=== PATIENT | female | born 2000 | race African-American/Black ===

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

== ENCOUNTER 2023-02-22 10:07 | Emergency (ER) | payer MEDICAID ==
[~2023-02-22] VITALS: Ht 170.2 cm; Wt 67.4 kg
[~2023-02-22 10:07] MED LIST: NITR-87 PO
[2023-02-22 11:07] VITALS: BP 111/77; PULSE 116; RESP 18; TEMP 98.4; O2SAT 97
[2023-02-22 12:06] LABS: Urine Bacteria FEW /hpf (None Seen); Urine Blood Negative /uL (Negative); Urine Clarity HAZY (Clear); Urine Color Yellow (Yellow); Urine Mucus MODERATE (None Seen); Urine Protein, UAD 1+ (Negative); Urine Specific Gravity 1.032 (1.001-1.035); Urine WBC 5 /hpf (0 - 5)
[2023-02-22] MEDS ORDERED: CEPH500C PO (12:22)
[2023-02-22] MEDS ORDERED: ACET-1080 PO (12:22)
== END 2023-02-22 12:34 | disposition home or self-care (01) ==
LOC: ER 10:07
DX: O23.42 Unspecified infection of urinary tract in pregnancy, second trimester (principal); N39.0 Urinary tract infection, site not specified; J02.9 Acute pharyngitis, unspecified; Z3A.16 16 weeks gestation of pregnancy
CPT/HCPCS: 76805; 81001

== ENCOUNTER 2023-02-27 19:59 | Emergency (ER) | payer MEDICAID ==
[~2023-02-27] VITALS: Ht 165.1 cm; Wt 68.6 kg
[~2023-02-27 19:59] MED LIST changes: +ACET-1080 PO; +CEPH500C PO
[2023-02-27 21:15] VITALS: BP 108/46; PULSE 66; RESP 18; O2SAT 100
[2023-02-27 22:08] LABS: Basophils # (auto) 0 10 ^3/uL (0-0.2); Basophils % (auto) 0.2 % (0.0-2.0); Eosinophils # (auto) 0.1 10 ^3/uL (0-0.8); Hemoglobin 11.2 g/dL (12.2-16.2); Monocytes # (auto) 0.4 10 ^3/uL (0-1.3); Neutrophils # (auto) 4.1 10 ^3/uL (1.6-8.6)
[2023-02-27 22:10] LABS: Eosinophils % (auto) 1.7 % (0.0-7.0); Hematocrit 33.1 % (36.0-46.0); Lymphocytes # (auto) 1.3 10 ^3/uL (0.4-5.4); Lymphocytes % (auto) 22.2 % (10.0-50.0); Mean Corpuscular Hemoglobin 26.2 pg (28.0-32.0); Mean Corpuscular Hgb Conc. 33.7 g/dL (32.0-36.0); Mean Corpuscular Volume 77.8 fL (80.0-100.0); Monocytes % (auto) 7.2 % (0.0-12.0); Neutrophils % (auto) 68.7 % (37.0-80.0); Nucleated Red Blood Cells % 0.1 %; Red Blood Cells 4.26 10^6/uL (4.0-5.20); Red Cell Distribution Width 13.8 % (11.8-14.3); White Blood Cell 5.9 10^3/uL (4.4-10.8)
[2023-02-27 22:22] LABS: Alanine Aminotransferase 10 U/L (7-40); Alkaline Phosphatase 56 U/L (46-116); Anion Gap 6 (5-15); Aspartate Aminotransferase 16 U/L (13-40); BUN/Creatinine Ratio 10.5 (10.0-20.0); Blood Urea Nitrogen 6 mg/dL (9-23); Carbon Dioxide 26 mmol/L (20-30); Chloride 106 mmol/L (98-107); Glucose 84 mg/dL (74-106); Potassium 3.7 mmol/L (3.5-5.1); Sodium 138 mmol/L (136-145)
[2023-02-27 22:23] LABS: Bilirubin, Total 0.3 mg/dL (0.2-1.0); Total Protein 6.9 g/dL (5.7-8.2)
[2023-02-27 23:00] LABS: Urine Bacteria NONE SEEN /hpf (None Seen); Urine Blood Negative /uL (Negative); Urine Clarity Clear (Clear); Urine Color Colorless (Yellow); Urine Protein, UAD Negative (Negative); Urine Specific Gravity 1.011 (1.001-1.035); Urine WBC <1 /hpf (0 - 5); Urine pH 7.5 (5.0-8.0)
== END 2023-02-28 00:51 | disposition left against medical advice (07) ==
LOC: ER 19:59
DX: O20.8 Other hemorrhage in early pregnancy (principal); R10.2 Pelvic and perineal pain; Z3A.17 17 weeks gestation of pregnancy
CPT/HCPCS: 36415; 76805; 80053; 81001; 84702; 85025; 86850; 86900; 86901

== ENCOUNTER 2023-07-21 22:28 | Inpatient (IN) | payer MEDICAID ==
[~2023-07-21] VITALS: Ht 165.1 cm; Wt 81.6 kg
[2023-07-21] MEDS ORDERED: BUTORPHANOL TARTRATE 2 MG/1 ML VIAL IV PRN ×2 (23:15)
[2023-07-21] MEDS ORDERED: LIDOCAINE 2%HCL (LOCAL ANESTH.) INJ 20ML MDV IJ PRN (23:15)
[2023-07-21 23:31] LABS: Basophils # (auto) 0.1 10 ^3/uL (0-0.2); Eosinophils # (auto) 0.1 10 ^3/uL (0-0.8); Eosinophils % (auto) 0.7 % (0.0-7.0); Hemoglobin 11.9 g/dL (12.2-16.2); Mean Corpuscular Hemoglobin 26.5 pg (28.0-32.0); White Blood Cell 9.4 10^3/uL (4.4-10.8)
[2023-07-21 23:33] LABS: Basophils % (auto) 0.7 % (0.0-2.0); Hematocrit 35.9 % (36.0-46.0); Lymphocytes # (auto) 1.3 10 ^3/uL (0.4-5.4); Lymphocytes % (auto) 14.2 % (10.0-50.0); Mean Corpuscular Hgb Conc. 33.3 g/dL (32.0-36.0); Mean Corpuscular Volume 79.7 fL (80.0-100.0); Monocytes # (auto) 0.8 10 ^3/uL (0-1.3); Monocytes % (auto) 8.3 % (0.0-12.0); Neutrophils # (auto) 7.1 10 ^3/uL (1.6-8.6); Neutrophils % (auto) 76.1 % (37.0-80.0); Nucleated Red Blood Cells % 0.2 %
[2023-07-21] MEDS: LACTATED RINGER'S 1,000 ML IV SCH (23:36)
[2023-07-21] MEDS ORDERED: PREN-96 PO (23:40)
[2023-07-21] MEDS: DERMOPLAST 60ML BOTTLE TOP PRN (23:41)
[2023-07-21] MEDS: WITCH HAZEL-GLYCERIN PAD TOP PRN (23:41)
[2023-07-21] MEDS: PHISODERM TOP SOLN 240ML BTL TOP PRN (23:41)
[2023-07-21 23:46] LABS: INR 0.97 (0.9-1.15); Partial Thromboplastin Time 29.3 SEC (24.5-34.5); Prothrombin Time 10.2 sec (9.3-11.8)
[2023-07-21 23:48] LABS: Alanine Aminotransferase 12 U/L (7-40); Albumin 3.9 g/dL (3.2-4.8); Alkaline Phosphatase 75 U/L (46-116); Anion Gap 10 (5-15); Aspartate Aminotransferase 38 U/L (13-40); BUN/Creatinine Ratio 12.7 (10.0-20.0); Bilirubin, Total 0.4 mg/dL (0.2-1.0); Blood Urea Nitrogen 8 mg/dL (9-23); Calcium 8.9 mg/dL (8.7-10.4); Carbon Dioxide 21 mmol/L (20-30); Chloride 106 mmol/L (98-107); Glucose 95 mg/dL (74-106); Potassium 3.6 mmol/L (3.5-5.1); Sodium 137 mmol/L (136-145); Total Protein 6.5 g/dL (5.7-8.2)
[2023-07-21 23:52] LABS: Urine Bacteria NONE SEEN /hpf (None Seen); Urine Blood Negative /uL (Negative); Urine Clarity Clear (Clear); Urine Color Yellow (Yellow); Urine Mucus FEW (None Seen); Urine Protein, UAD 2+ (Negative); Urine Specific Gravity 1.039 (1.001-1.035); Urine WBC 3 /hpf (0 - 5); Urine pH 6.5 (5.0-8.0)
[2023-07-21 23:54] LABS: Amphetamine Screen, Urine Neg (NEGATIVE); Barbiturate Scree,Urine Neg (NEGATIVE); Benzodiazephine Screen, Urine Neg (NEGATIVE); Cocaine Screen, Urine Neg (NEGATIVE)
[2023-07-21 23:55] LABS: Cannabinoid Screen, Urine Neg (NEGATIVE); Opiate Scree,Urine Neg (NEGATIVE); Phencyclidine Screen, Urine Neg (NEGATIVE)
[2023-07-22] MEDS ORDERED: NALOXONE HCL 0.4 MG/ML VIAL IV ONE
[2023-07-22] MEDS ORDERED: ePHEDrine SULFATE 50 MG/ML AMP IV ONE
[2023-07-22] MEDS: LACT. RINGERS/OXYTOCIN 20UNITS 500 ML IV ONE ×2 (03:01→03:04)
[2023-07-22] MEDS: ROPIVACAINE HCL 200 ML ONE (04:07)
[2023-07-22] MEDS ORDERED: ACETAMINOPHEN 325 MG TAB PO PRN (05:30)
[2023-07-22 07:00] VITALS: BP 112/60; PULSE 74; RESP 16; TEMP 98.3; O2SAT 100
[2023-07-22] MEDS: IBUPROFEN 600 MG TAB PO PRN (07:56)
[2023-07-22 11:00] VITALS: BP 121/62; PULSE 84; TEMP 98; O2SAT 99
[2023-07-22 15:00] VITALS: BP_SYST 117; BP_SYST 121; BP_SYST 123; BP_DIAS 62; BP_DIAS 64; BP_DIAS 68; PULSE 84; PULSE 90; PULSE 99; RESP 16; TEMP 98; TEMP 98.1; TEMP 98.3; O2SAT 97; O2SAT 99
[2023-07-22 19:00] VITALS: BP 100/61; PULSE 72; RESP 16; TEMP 97.9; O2SAT 99
[2023-07-22 23:00] VITALS: BP 134/60; PULSE 74; RESP 16; TEMP 98.6; O2SAT 97
[2023-07-22] MEDS ORDERED: IBU600T PO (23:42)
[2023-07-22] MEDS ORDERED: ASCO1TAB27 PO (23:42)
[2023-07-22] MEDS ORDERED: DOCU-94 PO (23:42)
[2023-07-22] MEDS ORDERED: FER325T PO (23:42)
[2023-07-23 02:44] VITALS: BP 115/56; PULSE 64; RESP 18; TEMP 97.8; O2SAT 99
[2023-07-23 06:35] VITALS: BP 114/63; PULSE 70; RESP 18; TEMP 97.6; O2SAT 97
[2023-07-23 07:06] LABS: RPR Non Reactive (Non Reactive)
[2023-07-23 07:08] LABS: Basophils # (auto) 0 10 ^3/uL (0-0.2); Basophils % (auto) 0.5 % (0.0-2.0); Eosinophils # (auto) 0.1 10 ^3/uL (0-0.8); Eosinophils % (auto) 1.3 % (0.0-7.0); Hematocrit 31.7 % (36.0-46.0); Hemoglobin 10.7 g/dL (12.2-16.2); Lymphocytes # (auto) 2.1 10 ^3/uL (0.4-5.4); Mean Corpuscular Hemoglobin 27.2 pg (28.0-32.0); Mean Corpuscular Hgb Conc. 33.8 g/dL (32.0-36.0); Mean Corpuscular Volume 80.5 fL (80.0-100.0); Monocytes # (auto) 0.8 10 ^3/uL (0-1.3); Monocytes % (auto) 8.6 % (0.0-12.0); Neutrophils # (auto) 6.2 10 ^3/uL (1.6-8.6); Neutrophils % (auto) 66.6 % (37.0-80.0); Red Blood Cells 3.94 10^6/uL (4.0-5.20); Red Cell Distribution Width 13.9 % (11.8-14.3); White Blood Cell 9.3 10^3/uL (4.4-10.8)
[2023-07-24 19:06] LABS: Treponema pallidum Ab (FTA-Ab) Non Reactive (Non Reactive)
== END 2023-07-23 09:50 | disposition home or self-care (01) | DRG 560 ==
LOC: LDRP 22:28 → OBSVTOIN 22:28 → LDRP 22:42
PROVIDERS: ADMIT Obstetrics & Gynecology; ATTEND Obstetrics & Gynecology
PROC: 10E0XZZ Delivery of Products of Conception, External Approach (ICD-10-PCS; principal; 2023-07-22)
PROC: 0HQ9XZZ Repair Perineum Skin, External Approach (ICD-10-PCS; 2023-07-22)
PROC: 3E0S3BZ Introduction of Anesthetic Agent into Epidural Space, Percutaneous Approach (ICD-10-PCS; 2023-07-22)
PROC: 00HU33Z Insertion of Infusion Device into Spinal Canal, Percutaneous Approach (ICD-10-PCS; 2023-07-22)
DX: O70.0 First degree perineal laceration during delivery (principal); Z37.0 Single live birth; Z3A.37 37 weeks gestation of pregnancy
CPT/HCPCS: 36415; 59025; 59409; 62282; 80053; 80307; 81001; 85025; 85610; 85730; 86592; 86850; 86900; 86901; 94760; 94762; 96360; 96361; 96365; 96366; G0378; J2590